=== PATIENT | female | born 1990 | race Two or more races ===

== ENCOUNTER 2024-05-16 10:26 | Inpatient (IN) | payer BC, OTHER ==
[~2024-05-16] VITALS: Ht 167.6 cm; Wt 87.0 kg
--- NOTE | 2024-05-16 11:11 | ED.PDOC ---
GI ASSESSMENT HPI Comments HPI: Poor Historian. 34-year-old female presents to emergency department for periumbilical abdominal pain that started yesterday after dinner on 5:00 p.m.. Patient has associated nausea and vomiting nonbilious nonbloody but denies any diarrhea. Pain is constant nonradiating. No alleviating or precipitating factors. Patient states she always has GI symptoms because she is on Ozempic for her diabetes. Initial Vital Signs: Temp : BP: HR: RR: SpO2: Past Medical History: DM Past Surgical History: Caesarian x2 Social History: Denies smoking, ETOH, or drug use. Medications: Ozempic Allergies: NKDA REVIEW OF SYSTEMS: CONSTITUTIONAL: Denies acute: fever, diaphoresis, chills, generalized weakness. HEAD: Denies acute: headache, photophobia Eyes: Denies acute: Double vision, vision loss, eye pain, eye discharge. EARS: Denies acute: tinnitus, hearing loss, ear discharge, ear pain, THROAT: Denies acute: sore throat, swelling, difficulty swallowing , pain with swallowing, change in voice. NECK: Denies acute: neck pain, neck swelling, stiff neck. HEART: Denies acute : chest pain, palpitations, LUNGS: Denies acute: SOB, wheezing, cough, hemoptysis ABDOMEN: Denies acute: diarrhea, melena , hematemesis, hematochezia SKIN: Denies acute: rash, redness, lesions, itchiness. EXTREMITIES: Denies acute: calf pain, numbness, tingling, weakness, denies pain in extremity. Denies acute: Low back pain. Neuro: Denies acute: focal neurological deficit, motor or sensory focal neurological deficit, tremors, seizure like activity, confusion, dizziness, change in mental status, loss of bowel or bladder function, cauda equina like symptoms. : Denies acute: dysuria, hematuria, flank pain, increase in urinary frequency. PSYCH: Denies acute: hallucination, suicidal ideation, homicidal ideation. FEMALE: Denies acute: abnormal vaginal bleeding, foul odor, unusual discharge. PHYSICAL EXAM: General: no acute distress, awake and alert. Head: normocephalic, atraumatic. Neck: supple, trachea is midline, no swelling. Throat: Normal phonation. Eyes:, no erythema, no purulent discharge, no proptosis, no icterus. Heart: regular rate, regular rhythm, no significant murmur appreciated. Lungs: no apparent respiratory distress, Able to speak in full sentences. No wheezing, no rhonchi, no crackles. No stridors Clear to auscultation bilaterally. Abdomen: Periumbilical tender to palpation, non distended, soft, no guarding, no rebound, + bowel sounds. Neuro: Awake, Alert, oriented to name, self, situation, follows commands GCS=15. Speech is normal. Skin: no petechia, no purpura, no cyanosis, non-pale, not jaundice. Lower extremities: --no - Pitting edema no deformity, no focal swelling, no calf TTP. Makes eye contact. moves all four extremities. Face: no apparent facial droop. Ambulating in the ED independently. Chief Complaint: Abdominal Pain Time Seen by MD: 11:00 Reviewed Notes: Nurses Notes, Medications, Allergies Allergies: Coded Allergies: NO KNOWN ALLERGIES (Unverified , 05/16/24) Information Source: Patient Mode of Arrival: Ambulatory Timing: Hours Duration: Since onset Quality: Aching Severity: Mild Pain Location: Epigastric Modifying Factors: Nothing Associated sign and symptoms: Nausea, Vomiting, Diarrhea Was a procedure done? Was a procedure done?: No GI differential Dx Differential Diagnosis: Electrolyte Imbalance, Food Poisoning, Bacterial, Viral X-Ray, Labs, Meds, VS Vital Signs Date Time Temp Pulse Resp B/P (MAP) Pulse Ox O2 Delivery O2 Flow Rate FiO2 05/16/24 13:52 126/80 05/16/24 11:50 98.0 89 18 122/80 (94) 100 98.0 05/16/24 11:50 89 18 100 Room Air 05/16/24 10:39 98.6 85 20 133/88 (103) 99 Lab Test 05/16/24 13:25 05/16/24 11:10 05/16/24 10:38 Range/Units Lactic Acid Level Pending 2.2 *H 0.4-2.0 mmol/L White Blood Count 19.8 H 4.4-10.8 10^3/uL Red Blood Count 4.76 4.0-5.20 10^6/uL Hemoglobin 15.1 12.2-16.2 g/dL Hematocrit 43.7 36.0-46.0 % Mean Corpuscular Volume 91.6 80.0-100.0 fL Mean Corpuscular Hemoglobin 31.6 28.0-32.0 pg Mean Corpuscular Hemoglobin Concent 34.5 32.0-36.0 g/dL Red Cell Distribution Width 13.1 11.8-14.3 % Platelet Count 292 140-450 10^3/uL Mean Platelet Volume 8.2 6.9-10.8 fL Neutrophils (%) (Auto) 91.5 H 37.0-80.0 % Lymphocytes (%) (Auto) 3.2 L 10.0-50.0 % Monocytes (%) (Auto) 4.5 0.0-12.0 % Eosinophils (%) (Auto) 0.3 0.0-7.0 % Basophils (%) (Auto) 0.5 0.0-2.0 % Neutrophils # (Auto) 18.1 H 1.6-8.6 10 ^3/uL Lymphocytes # (Auto) 0.6 0.4-5.4 10 ^3/uL Monocytes # (Auto) 0.9 0-1.3 10 ^3/uL Eosinophils # (Auto) 0.1 0-0.8 10 ^3/uL Basophils # (Auto) 0.1 0-0.2 10 ^3/uL Nucleated Red Blood Cells 0.0 % Sodium Level 134 L 136-145 mmol/L Potassium Level 4.1 3.5-5.1 mmol/L Chloride Level 102 98-107 mmol/L Carbon Dioxide Level 23 20-31 mmol/L Anion Gap 9 5-15 Blood Urea Nitrogen 8 L 9-23 mg/dL Creatinine 0.79 0.550-1.02 mg/dL Glomerular Filtration Rate Calc 102 >90 mL/min BUN/Creatinine Ratio 10.1 10.0-20.0 Serum Glucose 221 H 74-106 mg/dL Calcium Level 10.3 8.7-10.4 mg/dL Total Bilirubin 1.0 0.2-1.0 mg/dL Aspartate Amino Transferase (AST) 22 13-40 U/L Alanine Aminotransferase (ALT) 63 H 7-40 U/L Alkaline Phosphatase 70 46-116 U/L Total Protein 8.0 5.7-8.2 g/dL Albumin 4.7 3.2-4.8 g/dL Lipase 47 12-53 U/L Beta HCG, Quantitative 0.5 L 1.5-4.2 mIU/mL Urine Color Yellow Yellow Urine Clarity Clear Clear Urine pH 5.5 5.0-9.0 Urine Specific [place] 1.034 1.001-1.035 Urine Protein Trace H Negative Urine Ketones 2+ H Negative Urine Blood Negative Negative /uL Urine Nitrite 2+ H Negative Urine Bilirubin Negative Negative Urine Urobilinogen Normal Negative mg/dL Urine Leukocyte Esterase Negative Negative /uL Urine RBC 4 0 - 4 /hpf Urine WBC 7 0 - 5 /hpf Urine Squamous Epithelial Cells Few <5 /hpf Urine Bacteria Few H None Seen /hpf Urine Mucus Few None Seen Urine Glucose 4+ H Normal mg/dL Urine Opiates Screen Neg NEGATIVE Urine Fentanyl Screen Neg NEGATIVE Urine Barbiturates Screen Neg NEGATIVE Urine Phencyclidine Screen Neg NEGATIVE Urine Amphetamines Screen Neg NEGATIVE Urine Benzodiazepines Screen Neg NEGATIVE Urine Cocaine Screen Neg NEGATIVE Urine Cannabinoids Screen Neg NEGATIVE Current Medications Medications (Trade) Dose Ordered Sig/Hector Route Start Time Stop Time Status Last Admin Ondansetron HCl (Zofran) 8 mg ONCE ONCE IV 05/16/24 11:00 05/16/24 11:01 DC 05/16/24 12:03 Piperacillin Sod/ Tazobactam Sod 100 ml @ 100 mls/hr ONCE ONCE IV 05/16/24 12:15 05/16/24 13:14 DC 05/16/24 12:45 Sodium Chloride 1,000 ml @ 1,000 mls/hr Q1H ONCE IV 05/16/24 12:15 05/16/24 13:14 DC 05/16/24 12:15 Fentanyl Citrate 100 mcg ONCE ONCE IV 05/16/24 12:15 05/16/24 12:55 DC 05/16/24 13:52 [place] [id number] Ph: [phone] DIAGNOSTIC IMAGING Diagnostic Imaging Report : [id number] Signed PATIENT: ALAINA MAYORGA ACCT: [id number] UNIT: [id number] : 1990 LOC: ER ROOM / BED: / AGE / SEX: 34 / F ADM STATUS: REG ER SERVICE 1046 ORDERING PHYSICIAN: DAVIN ENCARNACION DO PROCEDURE(s): ABPL - CT AB PEL WO CON-NO ORAL OR IV REASON: abd pain n/v ORDER NUMBER(s): [id number], ACCESSION NUMBER(s): [id number] Exam: CT CT AB PEL WO CON-NO ORAL OR IV History: abd pain n/v Comparison Study: None Technique: Multidetector spiral CT of the abdomen and pelvis was performed from lung bases to pubic symphysis. Imaging was performed without IV contrast. Axial, coronal and sagittal multiplanar reformats were obtained from the axial data set by the technologist. Radiation dose : Abdomen/Pelvis: CTDIvol 12 mGy, DLP 623 mGy*cm. Findings: Evaluation of solid organs is limited due to lack of intravenous contrast use. Lung Bases: No acute or significant lung base finding. Normal heart size. No pleural or pericardial effusion. Liver: Diffuse hepatic steatosis. Gallbladder and biliary Tree: Unremarkable Spleen: Unremarkable Pancreas: The pancreas is grossly normal in appearance. Adrenal Glands: Unremarkable Kidneys: Kidneys are grossly normal without calculi or hydronephrosis. Bladder: Grossly unremarkable for degree of distention. Bowel: The stomach is grossly normal in appearance. Small bowel and colon are normal in caliber and distribution. Appendix is dilated with an appendicolith and adjacent stranding. No free air or loculated abscess. Ascites: Absent Lymphadenopathy: No mesenteric, retroperitoneal or periportal lymphadenopathy. Abdominal wall and Mesentery: Unremarkable. Vasculature: The visualized abdominal aorta is normal in size and caliber. Evaluation of abdominal and pelvic vessels is limited due to lack of intravenous contrast. Pelvic Organs: Intrauterine device in place. Musculoskeletal: No aggressive focal bony lesions, acute fractures or dislocation. IMPRESSION: 1. Acute appendicitis. No evidence of rupture. Surgical evaluation is recommended. Radiation optimization: All CT scans at this facility use at least one of these dose optimization techniques: Automated exposure control mA and/or kV adjustment per patient size (includes targeted exams where dose is matched to clinical indication) or iterative reconstruction. HS:Y ATED BY: JOSE SEGOVIA MD DICTATED DATE/TIME: 05/16/24 1308 SIGNED BY: JOSE SEGOVIA MD SIGNED DATE/TIME: 05/16/241307 CC: Reevaluation 1ST: Unchanged Patient Education/Counseling: Diagnosis, Treatment Family Education/Counseling: No Family Present Departure 1 Departure Time of Disposition: 12:12 Impression: Primary Impression: Abdominal pain Additional Impressions: Nausea and vomiting UTI (urinary tract infection) Leukocytosis Acute appendicitis Disposition: ADMITTED INPATIENT Admit to: Tele Condition: Guarded Discharged With: Self Critical Care Note Critical Care Time?: No Stability Stability form required: No I personally scribed for DAVIN ENCARNACION DO ([email or web address]) on 05/16/24 at 11:11. Electronically submitted by Yasmine Maravilla ([email or web address]). I personally scribed for DAVIN ENCARNACION DO ([email or web address]) on 05/16/24 at 13:57. Electronically submitted by Yasmine Maravilla ([email or web address]). DAVIN ENCARNACION DO May 16, 2024 11:11
[2024-05-16 11:33] LABS: Urine Bacteria FEW /hpf (None Seen); Urine Blood Negative /uL (Negative); Urine Clarity Clear (Clear); Urine Color Yellow (Yellow); Urine Mucus FEW (None Seen); Urine Protein, UAD TRACE (Negative); Urine Specific Gravity 1.034 (1.001-1.035); Urine Squamous Epithelial Cell FEW /hpf (<5); Urine Urobilinogen Normal (Negative); Urine WBC 7 /hpf (0 - 5); Urine pH 5.5 (5.0-9.0)
[2024-05-16 11:46] LABS: Basophils # (auto) 0.1 10 ^3/uL (0-0.2); Basophils % (auto) 0.5 % (0.0-2.0); Eosinophils # (auto) 0.1 10 ^3/uL (0-0.8); Eosinophils % (auto) 0.3 % (0.0-7.0); Hematocrit 43.7 % (36.0-46.0); Hemoglobin 15.1 g/dL (12.2-16.2); Lymphocytes # (auto) 0.6 10 ^3/uL (0.4-5.4); Lymphocytes % (auto) 3.2 % (10.0-50.0); Mean Corpuscular Hemoglobin 31.6 pg (28.0-32.0); Mean Corpuscular Hgb Conc. 34.5 g/dL (32.0-36.0); Mean Corpuscular Volume 91.6 fL (80.0-100.0); Monocytes # (auto) 0.9 10 ^3/uL (0-1.3); Monocytes % (auto) 4.5 % (0.0-12.0); Neutrophils # (auto) 18.1 10 ^3/uL (1.6-8.6); Neutrophils % (auto) 91.5 % (37.0-80.0); Platelet Count (auto) 292 10^3/uL (140-450); Red Blood Cells 4.76 10^6/uL (4.0-5.20); Red Cell Distribution Width 13.1 % (11.8-14.3); White Blood Cell 19.8 10^3/uL (4.4-10.8)
[2024-05-16 11:54] LABS: Albumin 4.7 g/dL (3.2-4.8); Alkaline Phosphatase 70 U/L (46-116); Anion Gap 9 (5-15); Aspartate Aminotransferase 22 U/L (13-40); BUN/Creatinine Ratio 10.1 (10.0-20.0); Calcium 10.3 mg/dL (8.7-10.4); Carbon Dioxide 23 mmol/L (20-31); Chloride 102 mmol/L (98-107); Lipase 47 U/L (12-53); Potassium 4.1 mmol/L (3.5-5.1)
[2024-05-16 11:58] LABS: Amphetamine Screen, Urine Neg (NEGATIVE); Barbiturate Scree,Urine Neg (NEGATIVE); Benzodiazephine Screen, Urine Neg (NEGATIVE); Cannabinoid Screen, Urine Neg (NEGATIVE); Cocaine Screen, Urine Neg (NEGATIVE); Opiate Scree,Urine Neg (NEGATIVE); Phencyclidine Screen, Urine Neg (NEGATIVE)
[2024-05-16 11:59] LABS: Lactic Acid w/Reflex 2.2 mmol/L (0.4-2.0)
[2024-05-16 12:02] LABS: Alanine Aminotransferase 63 U/L (7-40); Blood Urea Nitrogen 8 mg/dL (9-23); Glucose 221 mg/dL (74-106); Sodium 134 mmol/L (136-145)
[2024-05-16] MEDS: ONDANSETRON HCL 4 MG/2 ML VIAL IV ONE (12:03)
[2024-05-16] MEDS: SODIUM CHLORIDE 0.9% 1,000 ML IV ONE (12:15)
[2024-05-16] MEDS: PIPERACILLIN-TAZOB 3.375GM 100 ML IV ONE (12:45)
--- NOTE | 2024-05-16 13:10 | DVH ---
Exam: CT CT AB PEL WO CON-NO ORAL OR IV History: abd pain n/v Comparison Study: None Technique: Multidetector spiral CT of the abdomen and pelvis was performed from lung bases to pubic symphysis. Imaging was performed without IV contrast. Axial, coronal and sagittal multiplanar reform ats were obtained from the axial data set by the technologist. Radiation dose : Abdomen/Pelvis: CTDIvol 12 mGy, DLP 623 mGy*cm. Findings: Evaluation of solid organs is limited due to lack of intravenous contrast use. Lung Bases: No acute or significant lung base finding. Normal heart size. No pleural or pericardial effusion. Liver: Diffuse hepatic steatosis. Gallbladder and biliary Tree: Unremarkable Spleen: Unremarkable Pancreas: The pancreas is grossly normal in appearance. Adrenal Glands: Unremarkable Kidneys: Kidneys are grossly normal without calculi or hydronephrosis. Bladder: Grossly unremarkable for degree of distention. Bowel: The stomach is grossly normal in appearance. Small bowel and colon are normal in caliber and d istribution. Appendix is dilated with an appendicolith and adjacent stranding. No free air or locula fabi abscess. Ascites: Absent Lymphadenopathy: No mesenteric, retroperitoneal or periportal lymphadenopathy. Abdominal wall and Mesentery: Unremarkable. Vasculature: The visualized abdominal aorta is normal in size and caliber. Evaluation of abdominal a nd pelvic vessels is limited due to lack of intravenous contrast. Pelvic Organs: Intrauterine device in place. Musculoskeletal: No aggressive focal bony lesions, acute fractures or dislocation. IMPRESSION: 1. Acute appendicitis. No evidence of rupture. Surgical evaluation is recommended. Radiation optimization: All CT scans at this facility use at least one of these dose optimization amanda hniques: Automated exposure control mA and/or kV adjustment per patient size (includes targeted exams where dose is matched to clinical indication) or iterative reconstruction. HS:Y
[2024-05-16] MEDS: fentaNYL CITRATE 100 MCG/2 ML VL IV ONE (13:52)
--- NOTE | 2024-05-16 14:23 | DVHINCON2 ---
Date of service: May 16, 2024 Allergies: Coded Allergies: NO KNOWN ALLERGIES (Unverified , 05/16/24) Vital Signs Vital Signs Date Time Temp Pulse Resp B/P (MAP) Pulse Ox O2 Delivery O2 Flow Rate FiO2 05/16/24 13:52 126/80 05/16/24 11:50 98.0 89 18 100 98.0 05/16/24 11:50 Room Air Labs/Diagnostic Data Labs Test 05/16/24 13:25 05/16/24 11:10 05/16/24 10:38 Range/Units White Blood Count 19.8 H 4.4-10.8 10^3/uL Red Blood Count 4.76 4.0-5.20 10^6/uL Hemoglobin 15.1 12.2-16.2 g/dL Hematocrit 43.7 36.0-46.0 % Mean Corpuscular Volume 91.6 80.0-100.0 fL Mean Corpuscular Hemoglobin 31.6 28.0-32.0 pg Mean Corpuscular Hemoglobin Concent 34.5 32.0-36.0 g/dL Red Cell Distribution Width 13.1 11.8-14.3 % Platelet Count 292 140-450 10^3/uL Mean Platelet Volume 8.2 6.9-10.8 fL Neutrophils (%) (Auto) 91.5 H 37.0-80.0 % Lymphocytes (%) (Auto) 3.2 L 10.0-50.0 % Monocytes (%) (Auto) 4.5 0.0-12.0 % Eosinophils (%) (Auto) 0.3 0.0-7.0 % Basophils (%) (Auto) 0.5 0.0-2.0 % Neutrophils # (Auto) 18.1 H 1.6-8.6 10 ^3/uL Lymphocytes # (Auto) 0.6 0.4-5.4 10 ^3/uL Monocytes # (Auto) 0.9 0-1.3 10 ^3/uL Eosinophils # (Auto) 0.1 0-0.8 10 ^3/uL Basophils # (Auto) 0.1 0-0.2 10 ^3/uL Nucleated Red Blood Cells 0.0 % Sodium Level 134 L 136-145 mmol/L Potassium Level 4.1 3.5-5.1 mmol/L Chloride Level 102 98-107 mmol/L Carbon Dioxide Level 23 20-31 mmol/L Anion Gap 9 5-15 Blood Urea Nitrogen 8 L 9-23 mg/dL Creatinine 0.79 0.550-1.02 mg/dL Glomerular Filtration Rate Calc 102 >90 mL/min BUN/Creatinine Ratio 10.1 10.0-20.0 Serum Glucose 221 H 74-106 mg/dL Calcium Level 10.3 8.7-10.4 mg/dL Total Bilirubin 1.0 0.2-1.0 mg/dL Aspartate Amino Transferase (AST) 22 13-40 U/L Alanine Aminotransferase (ALT) 63 H 7-40 U/L Alkaline Phosphatase 70 46-116 U/L Total Protein 8.0 5.7-8.2 g/dL Albumin 4.7 3.2-4.8 g/dL Lipase 47 12-53 U/L Beta HCG, Quantitative 0.5 L 1.5-4.2 mIU/mL Urine Color Yellow Yellow Urine Clarity Clear Clear Urine pH 5.5 5.0-9.0 Urine Specific [place] 1.034 1.001-1.035 Urine Protein Trace H Negative Urine Ketones 2+ H Negative Urine Blood Negative Negative /uL Urine Nitrite 2+ H Negative Urine Bilirubin Negative Negative Urine Urobilinogen Normal Negative mg/dL Urine Leukocyte Esterase Negative Negative /uL Urine RBC 4 0 - 4 /hpf Urine WBC 7 0 - 5 /hpf Urine Squamous Epithelial Cells Few <5 /hpf Urine Bacteria Few H None Seen /hpf Urine Mucus Few None Seen Urine Glucose 4+ H Normal mg/dL Urine Opiates Screen Neg NEGATIVE Urine Fentanyl Screen Neg NEGATIVE Urine Barbiturates Screen Neg NEGATIVE Urine Phencyclidine Screen Neg NEGATIVE Urine Amphetamines Screen Neg NEGATIVE Urine Benzodiazepines Screen Neg NEGATIVE Urine Cocaine Screen Neg NEGATIVE Urine Cannabinoids Screen Neg NEGATIVE Assessment [id number] AC APPENDICITIS URGENT LAP/OPEN APPENDECTOMY Plan discussed with: Patient ESTEBAN ROSS MD May 16, 2024 14:23
[2024-05-16] MEDS ORDERED: BUPIVACAINE HCL 50 ML ONE (14:52)
[2024-05-16] MEDS ORDERED: MIDAZOLAM HCL 2MG/2ML 2ml VIAL (1mg/ml) ONE (15:32)
[2024-05-16] MEDS ORDERED: NITROGLYCERIN 0.4 MG SL TAB SL PRN (15:45)
[2024-05-16] MEDS ORDERED: ONDANSETRON HCL 4 MG/2 ML VIAL IV PRN (15:45)
[2024-05-16] MEDS ORDERED: MORPHINE SULFATE INJ 2 MG/ml SYRG IV PRN (15:45)
[2024-05-16] MEDS ORDERED: MORPHINE SULF PF 5 MG/10 ML VIAL ONE (15:54)
[2024-05-16] MEDS ORDERED: METOCLOPRAMIDE HCL 5MG/ml INJ 2ml VIAL ONE (15:56)
[2024-05-16] MEDS ORDERED: ONDANSETRON HCL 4 MG/2 ML VIAL ONE (15:56)
--- NOTE | 2024-05-16 16:09 | DVHHPRES ---
History of Present Illness Resident Creating Document: RENEE SMITH RESIDENT Reason for Visit: Yelena-umbilical abdominal pain, nausea, vomiting History of Present Illness 34-year-old female with type 2 diabetes mellitus presented with severe yelena- umbilical abdominal pain that began yesterday afternoon. The pain radiated to the right lower quadrant and was rated as 10 /10 in intensity. It was associated with nausea and vomiting, with no factors that elevated or aggravated the pain. She denied experiencing any chest pain, shortness of breath, or diarrhea. The pain was constant and non-relieving. Endocrine: Diabetes Past Surgical History section X2 Family History Noncontributory Past Social History She denies smoking, alcohol, or other drug abuse. Review of Systems Review of Systems CONSTITUTIONAL: Denies weight loss, fever and chills. HEENT: Denies changes in vision and hearing. RESPIRATORY: Denies SOB and cough. CV: Denies palpitations and chest pain. GI: Admits to yelena-umbilical abdominal pain, admits to nausea, admits to vomiting : Denies dysuria and urinary frequency. MSK: Denies myalgia and joint pain. SKIN: Denies rash and pruritus. NEUROLOGICAL: Denies headache Allergies: Coded Allergies: NO KNOWN ALLERGIES (Unverified , 05/16/24) Medications Current Medications Medications Dose Ordered Sig/Hector Route Start Time Stop Time Status Last Admin Dose Admin Ondansetron HCl 4 mg Q4HP PRN IV 05/16/24 15:45 UNV Acetaminophen 650 mg Q6HP PRN PO 05/16/24 15:45 UNV Nitroglycerin 0.4 mg Q5MINP PRN SL 05/16/24 15:45 UNV Morphine Sulfate 2 mg Q30M PRN IV 05/16/24 15:45 UNV Ceftriaxone Sodium 50 ml @ 100 mls/hr DAILY IV 05/17/24 10:00 UNV Exam Vital Signs Vital Signs Date Time Temp Pulse Resp B/P (MAP) Pulse Ox O2 Delivery O2 Flow Rate FiO2 05/16/24 13:52 126/80 05/16/24 11:50 98.0 89 18 100 98.0 05/16/24 11:50 Room Air Exam GENERAL: Patient was in acute distress Due to abdominal pain HEENT: EOMI, Moist mucous membranes. No scleral icterus. No cervical lymphadenopathy. LUNGS: Clear to auscultation bilaterally. No accessory muscle use. CARDIOVASCULAR: Regular rate and rhythm. No murmur. No JVD. ABDOMEN: Right Lower quadrant tenderness positive. EXTREMITIES: No edema. Nontender. SKIN: No rashes or lesions. Warm. NEUROLOGIC: Alert and oriented X3 Labs/Xrays Labs Test 05/16/24 13:25 05/16/24 11:10 05/16/24 10:38 Range/Units Lactic Acid Level 2.1 *H 0.4-2.0 mmol/L White Blood Count 19.8 H 4.4-10.8 10^3/uL Red Blood Count 4.76 4.0-5.20 10^6/uL Hemoglobin 15.1 12.2-16.2 g/dL Hematocrit 43.7 36.0-46.0 % Mean Corpuscular Volume 91.6 80.0-100.0 fL Mean Corpuscular Hemoglobin 31.6 28.0-32.0 pg Mean Corpuscular Hemoglobin Concent 34.5 32.0-36.0 g/dL Red Cell Distribution Width 13.1 11.8-14.3 % Platelet Count 292 140-450 10^3/uL Mean Platelet Volume 8.2 6.9-10.8 fL Neutrophils (%) (Auto) 91.5 H 37.0-80.0 % Lymphocytes (%) (Auto) 3.2 L 10.0-50.0 % Monocytes (%) (Auto) 4.5 0.0-12.0 % Eosinophils (%) (Auto) 0.3 0.0-7.0 % Basophils (%) (Auto) 0.5 0.0-2.0 % Neutrophils # (Auto) 18.1 H 1.6-8.6 10 ^3/uL Lymphocytes # (Auto) 0.6 0.4-5.4 10 ^3/uL Monocytes # (Auto) 0.9 0-1.3 10 ^3/uL Eosinophils # (Auto) 0.1 0-0.8 10 ^3/uL Basophils # (Auto) 0.1 0-0.2 10 ^3/uL Nucleated Red Blood Cells 0.0 % Sodium Level 134 L 136-145 mmol/L Potassium Level 4.1 3.5-5.1 mmol/L Chloride Level 102 98-107 mmol/L Carbon Dioxide Level 23 20-31 mmol/L Anion Gap 9 5-15 Blood Urea Nitrogen 8 L 9-23 mg/dL Creatinine 0.79 0.550-1.02 mg/dL Glomerular Filtration Rate Calc 102 >90 mL/min BUN/Creatinine Ratio 10.1 10.0-20.0 Serum Glucose 221 H 74-106 mg/dL Calcium Level 10.3 8.7-10.4 mg/dL Total Bilirubin 1.0 0.2-1.0 mg/dL Aspartate Amino Transferase (AST) 22 13-40 U/L Alanine Aminotransferase (ALT) 63 H 7-40 U/L Alkaline Phosphatase 70 46-116 U/L Total Protein 8.0 5.7-8.2 g/dL Albumin 4.7 3.2-4.8 g/dL Lipase 47 12-53 U/L Beta HCG, Quantitative 0.5 L 1.5-4.2 mIU/mL Urine Color Yellow Yellow Urine Clarity Clear Clear Urine pH 5.5 5.0-9.0 Urine Specific [place] 1.034 1.001-1.035 Urine Protein Trace H Negative Urine Ketones 2+ H Negative Urine Blood Negative Negative /uL Urine Nitrite 2+ H Negative Urine Bilirubin Negative Negative Urine Urobilinogen Normal Negative mg/dL Urine Leukocyte Esterase Negative Negative /uL Urine RBC 4 0 - 4 /hpf Urine WBC 7 0 - 5 /hpf Urine Squamous Epithelial Cells Few <5 /hpf Urine Bacteria Few H None Seen /hpf Urine Mucus Few None Seen Urine Glucose 4+ H Normal mg/dL Urine Opiates Screen Neg NEGATIVE Urine Fentanyl Screen Neg NEGATIVE Urine Barbiturates Screen Neg NEGATIVE Urine Phencyclidine Screen Neg NEGATIVE Urine Amphetamines Screen Neg NEGATIVE Urine Benzodiazepines Screen Neg NEGATIVE Urine Cocaine Screen Neg NEGATIVE Urine Cannabinoids Screen Neg NEGATIVE Assessment/Plan Assessment/Plan # Acute appendicitis #Intra-abdominal abscess, # Leukocytosis due to appendicitis and intra-abdominal abscess # Lactic acidosis due to acute appendicitis and intra-abdominal abscess # SIRS -Status post laparoscopic appendectomy with intra-abdominal abscess drainage. - presentation appreciated, recommended emergent surgery. - continue empiric antibiotics - pending blood culture - pain management - maintain hydration # Acute UTI: - uterus nine positive, urine bacteria positive - urine culture pending - Continue antibiotic therapy. - Change antibiotic therapy for UTI based on urine culture results. # Diabetes mellitus type 2 - HgA1C: 7.7 - continue sliding scale insulin - monitor blood glucose level. # Mild hyponatremia - sodium level was 134 - monitor BMP reasons. Goal of care discussed with patient for 27 minutes: Full code Case discussed with Dr. Sidhu Plan discussed with: Patient My Orders Orders - RENEE SMITH RESIDENT Procedure Category Date Status Time Admit ADMIT 05/16/24 Transmitted 15:40 Allergies LALITO 05/16/24 In Process 15:40 Code Status CODE 05/16/24 Transmitted 15:40 Ondansetron Hcl PHA 05/16/24 Logged (Zofran) 15:45 Complete Blood Count LAB 05/17/24 Verified 04:00 Comprehensive LAB 05/17/24 Verified Metabolic Panel 04:00 Npo (Nothing By DIET 05/16/24 Transmitted Mouth) Diet Dinner Acetaminophen Tablet PHA 05/16/24 Logged (Tylenol Tablet) 15:45 Nitroglycerin PHA 05/16/24 Logged Sublingual (Ntrostat 15:45 Morphine Sulfate PHA 05/16/24 Logged Injection 15:45 Oxygen By Nasal RT 05/16/24 Transmitted Cannula 15:40 Stat Ekg For Chest LALITO 05/16/24 In Process Pain 15:40 Notify Md Of Changes LALITO 05/16/24 In Process From Base 15:40 Ceftriaxone 1gm/50ml PHA 05/17/24 Logged D5w (Rocephin) 10:00 Date of Service: May 17, 2024 Billing Provider: FLAQUITO SIDHU MD Common Visit Codes: [id number] INP/OBS CARE (HIGH) RENEE SMITH RESIDENT May 16, 2024 16:09 FLAQUITO SIDHU MD May 20, 2024 20:58
[2024-05-16] MEDS: BUPIVACAINE 0.5% INJ 50ML VIAL IJ ONE (16:15)
[2024-05-16] MEDS ORDERED: KETOROLAC TROMETH 30 MG/ML 1ML VIAL ONE (16:22)
[2024-05-16] MEDS ORDERED: SUGAMMADEX 200mg/2ml Vial (100MG/ML) IV ONE (16:25)
[2024-05-16 16:33] VITALS: PULSE 91; RESP 12; O2SAT 100
--- NOTE | 2024-05-16 16:33 | DVHOP2 ---
Operative Report [id number] AC APPENDICITIS WIT INTRA ABD ABSCESS DRAINAGE OF INTRAABD ABSCESS AND LAP APPENDECTOMY EBL 5 CC NO DRAINS NO COMPLICATIONS ESTEBAN ROSS MD May 16, 2024 16:33
--- NOTE | 2024-05-16 16:48 | DVHOP ---
DATE OF SURGERY: 05/16/2024 PREOPERATIVE DIAGNOSES: Acute appendicitis with intra-abdominal abscess. POSTOPERATIVE DIAGNOSES: Acute appendicitis with intra-abdominal abscess. PROCEDURE: Drainage of intra-abdominal abscess with laparoscopic appendectomy. SURGEON: Maco Hilliard MD HAND SANDER: None. ANESTHESIA: General. ESTIMATED BLOOD LOSS: Close to 5 mL DRAINS: No drains were used. COMPLICATIONS: No complications were encountered. DESCRIPTION OF PROCEDURE: The patient was prepped and draped in the usual sterile fashion in the supine position and a supraumbilical incision was applied, was taken down to the fascia. The Veress needle was introduced and CO2 insufflation was started, pressure of 15 mmHg. The needle was withdrawn, replaced by the 12 mm trocar and a telescope was introduced and the appendix was found acutely inflamed, distended with intra-abdominal abscess in the right lower quadrant and pelvis and two 5 mm ports were applied more inferiorly, one above the symphysis, the third midway between the upper two. The patient was placed in the Trendelenburg and right upper lateral position. The camera was moved to the lowermost 5 mm port, able to proceed with surgery. The abscess was drained out. The mesoappendix was clipped at the base, divided distal to that using Harmonic device. The base of the appendix was then cleared for transection using the Endo-JESSICA stapling device. Appendix released in this fashion, was retrieved from the supraumbilical wound in the EndoCatch bag without any complication. Hemostasis was secured. Irrigation fluid was removed. The ports sites were free from bleeding. EndoClose suture was used for the fascial closure of the supraumbilical wound. All ports were withdrawn after all the CO2 been let out and the patient was placed in supine. The wounds were then brought together using 3-0 Monocryl suture in a subcuticular fashion. Surgical glue was applied. The patient tolerated the procedure well and was taken back to the recovery room in stable condition. MD HARPAL Sarabia/CHRISSY TID: [id number] RECEIPT: [id number] cc: Wanda Ferguson
[2024-05-16] MEDS ORDERED: DEXTROSE (50%) 50ML SYRG IV PRN (18:15)
[2024-05-16] MEDS ORDERED: SEMA2INJ3 SC (18:28)
[2024-05-16 18:32] VITALS: BP 115/76; PULSE 83; RESP 16; TEMP 98.3; O2SAT 99
[2024-05-16 18:47] VITALS: BP 115/76; PULSE 83; RESP 16; RESP 17; TEMP 98.3; O2SAT 99
--- NOTE | 2024-05-16 18:59 | DVHINCON2 ---
DATE OF CONSULTATION: 05/16/2024 HISTORY OF PRESENT ILLNESS: A 34 years old, coming in with right lower abdominal pain for the past 2 or 3 days, got worse, came to the Emergency Room. Some nausea, no vomiting, no constipation, diarrhea. No hematemesis, melena. No bleeding per rectum. PAST MEDICAL HISTORY: She has diabetes, but no hypertension. PAST SURGICAL HISTORY: . PHYSICAL EXAMINATION: VITAL SIGNS: Afebrile, stable signs. HEENT: With no evidence of pallor, cyanosis, or jaundice. NECK: Supple, nontender with no thyromegaly, lymphadenopathy. CHEST AND LUNGS: Clear. HEART: Within normal limits. ABDOMEN: Soft, tender in the right lower abdomen with evidence of rebound. EXTREMITIES: Unremarkable. NEUROLOGIC: Intact. CLINICAL IMPRESSION: Acute appendicitis. PLAN: Laparoscopic, possible open appendectomy. Benefits, risks discussed and a consent obtained. MD HARPAL Sarabia/FLAKO/RED TID: [id number] RECEIPT: [id number]
[2024-05-16 21:00] VITALS: BP_SYST 109; BP_SYST 120; BP_DIAS 67; BP_DIAS 69; PULSE 88; PULSE 94; RESP 20; TEMP 97.9; TEMP 98.1; O2SAT 97; O2SAT 98
[2024-05-16] MEDS: metroNIDAZOLE 500MG/100ML 100 ML IV SCH (22:36)
[2024-05-16] MEDS: ACCU-CHEK COMFORT CURVE STRIP VI SCH (22:39)
[2024-05-16] MEDS: InsuLIN REG 1unit/0.01ml Soln (100units/ml) SC SCH (22:52)
[2024-05-16] MEDS: ACETAMINOPHEN 325 MG TAB PO PRN (23:57)
[2024-05-17] VITALS (7 sets, daily range): BP systolic 97–110; BP diastolic 51–75; PULSE 60–83; RESP 14–20; TEMP 36.5; O2SAT 95–100
[2024-05-17 07:54] LABS: Basophils # (auto) 0 10 ^3/uL (0-0.2); Basophils % (auto) 0.2 % (0.0-2.0); Eosinophils # (auto) 0 10 ^3/uL (0-0.8); Eosinophils % (auto) 0.3 % (0.0-7.0); Hematocrit 36.2 % (36.0-46.0); Hemoglobin 12.6 g/dL (12.2-16.2); Lymphocytes # (auto) 1.8 10 ^3/uL (0.4-5.4); Lymphocytes % (auto) 24.7 % (10.0-50.0); Mean Corpuscular Hgb Conc. 34.7 g/dL (32.0-36.0); Mean Corpuscular Volume 92.3 fL (80.0-100.0); Monocytes # (auto) 0.6 10 ^3/uL (0-1.3); Monocytes % (auto) 7.5 % (0.0-12.0); Neutrophils % (auto) 67.3 % (37.0-80.0); Nucleated Red Blood Cells % 0.1 %; Platelet Count (auto) 245 10^3/uL (140-450); Red Blood Cells 3.92 10^6/uL (4.0-5.20); White Blood Cell 7.4 10^3/uL (4.4-10.8)
[2024-05-17 08:10] LABS: Alanine Aminotransferase 35 U/L (7-40); Alkaline Phosphatase 58 U/L (46-116); Anion Gap 6 (5-15); BUN/Creatinine Ratio 10.4 (10.0-20.0); Calcium 8.9 mg/dL (8.7-10.4); Carbon Dioxide 27 mmol/L (20-31); Chloride 105 mmol/L (98-107); Potassium 3.5 mmol/L (3.5-5.1); Sodium 138 mmol/L (136-145)
[2024-05-17 08:11] LABS: Albumin 3.6 g/dL (3.2-4.8); Bilirubin, Total 0.9 mg/dL (0.2-1.0); Total Protein 6.2 g/dL (5.7-8.2)
[2024-05-17] MEDS: cefTRIAXone 1GM/50ML D5W 50 ML IV SCH (08:12)
[2024-05-17 08:17] LABS: Aspartate Aminotransferase 11 U/L (13-40); Blood Urea Nitrogen 8 mg/dL (9-23); Glucose 141 mg/dL (74-106)
--- NOTE | 2024-05-17 08:25 | DVHPNRES ---
Progress Note Date Seen: May 17, 2024 Resident Creating Document: RENEE SMITH RESIDENT Subjective Review of Systems 34-year-old female with type 2 diabetes mellitus presented with severe cely- umbilical abdominal pain that began yesterday afternoon. The pain radiated to the right lower quadrant and was rated as 10 /10 in intensity. It was associated with nausea and vomiting, with no factors that elevated or aggravated the pain. She denied experiencing any chest pain, shortness of breath, or diarrhea. The pain was constant and non-relieving. CONSTITUTIONAL: Denies weight loss, fever and chills. HEENT: Denies changes in vision and hearing. RESPIRATORY: Denies SOB and cough. CV: Denies palpitations and chest pain. GI: Admits to cely-umbilical abdominal pain, admits to nausea, admits to vomiting : Denies dysuria and urinary frequency. MSK: Denies myalgia and joint pain. SKIN: Denies rash and pruritus. NEUROLOGICAL: Denies headache Objective vital signs Vital Sign Date Time Temp Pulse Resp B/P (MAP) Pulse Ox O2 Delivery O2 Flow Rate FiO2 05/17/24 05:00 97.8 83 20 102/51 (68) 95 97.8 05/16/24 20:00 Room Air* 0 21 Total Intake and Output 05/16/24 05/16/24 05/17/24 15:00 23:00 07:00 Intake Total 450 ml Output Total 100 ml Balance 350 ml medications Current Medications Medications Dose Ordered Sig/Hector Route Start Time Stop Time Status Last Admin Dose Admin Ondansetron HCl 4 mg Q4HP PRN IV 05/16/24 15:45 Acetaminophen 650 mg Q6HP PRN PO 05/16/24 15:45 05/17/24 06:51 650 MG Nitroglycerin 0.4 mg Q5MINP PRN SL 05/16/24 15:45 Morphine Sulfate 2 mg Q30M PRN IV 05/16/24 15:45 Ceftriaxone Sodium 50 ml @ 100 mls/hr DAILY IV 05/17/24 10:00 Metronidazole 100 ml @ 100 mls/hr Q8HR IV 05/16/24 22:00 05/17/24 05:42 100 MLS/HR Diagnostic Test (Pha) 1 strip ACHS 05/16/24 22:00 05/17/24 05:41 1 STRIP Insulin Human Regular ACHS SC 05/16/24 22:00 05/16/24 22:52 2 UNITS Dextrose 50 ml UD PRN IV 05/16/24 18:15 Examination GENERAL: Patient was in acute distress Due to abdominal pain HEENT: EOMI, Moist mucous membranes. No scleral icterus. No cervical lymphadenopathy. LUNGS: Clear to auscultation bilaterally. No accessory muscle use. CARDIOVASCULAR: Regular rate and rhythm. No murmur. No JVD. ABDOMEN: Right Lower quadrant tenderness positive. EXTREMITIES: No edema. Nontender. SKIN: No rashes or lesions. Warm. NEUROLOGIC: Alert and oriented X3 laboratory and microbiology Laboratory Tests 05/17/24 06:56 Test 05/17/24 06:56 Range/Units Serum Glucose 141 H 74-106 mg/dL Problem List/Assessment/Plan Problem List/Assessment/Plan # Acute appendicitis #Intra-abdominal abscess, # Leukocytosis due to appendicitis and intra-abdominal abscess # Lactic acidosis due to acute appendicitis and intra-abdominal abscess # SIRS -Status post laparoscopic appendectomy with intra-abdominal abscess drainage. - presentation appreciated, recommended emergent surgery. - continue empiric antibiotics - pending blood culture - pain management - maintain hydration # Acute UTI: - uterus nine positive, urine bacteria positive - urine culture pending - Continue antibiotic therapy. - Change antibiotic therapy for UTI based on urine culture results. # Diabetes mellitus type 2 - HgA1C: 7.7 - continue sliding scale insulin - monitor blood glucose level. # Mild hyponatremia - sodium level was 134 - monitor BMP reasons. Goal of care discussed with patient for 27 minutes: Full code Case discussed with Dr. Arambula Plan discussed with: Patient My Orders My Orders Orders - RENEE SMITH RESIDENT Procedure Category Date Status Time Admit ADMIT 05/16/24 Transmitted 15:40 Allergies LALITO 05/16/24 In Process 15:40 Code Status CODE 05/16/24 Transmitted 15:40 Ondansetron Hcl PHA 05/16/24 In Process (Zofran) 15:45 Acetaminophen Tablet PHA 05/16/24 In Process (Tylenol Tablet) 15:45 Nitroglycerin PHA 05/16/24 In Process Sublingual (Ntrostat 15:45 Morphine Sulfate PHA 05/16/24 In Process Injection 15:45 Oxygen By Nasal RT 05/16/24 Transmitted Cannula 15:40 Stat Ekg For Chest LALITO 05/16/24 In Process Pain 15:40 Notify Md Of Changes LALITO 05/16/24 In Process From Base 15:40 Ceftriaxone 1gm/50ml PHA 05/17/24 In Process D5w (Rocephin) 10:00 Metronidazole PHA 05/16/24 In Process 500mg/100ml (Flagyl 22:00 Glucose Blood PHA 05/16/24 In Process (Accu-Chek Comfort 22:00 Insulin R (Human) PHA 05/16/24 In Process (Insulin R) 22:00 Dextrose 50% Syringe PHA 05/16/24 In Process 18:15 RENEE SMITH RESIDENT May 17, 2024 08:25
[2024-05-17] MEDS ORDERED: MORPHINE SULFATE INJ 2 MG/ml SYRG IV PRN (14:00)
[2024-05-17] MEDS: KETOROLAC TROMETH 30 MG/ML 1ML VIAL IV ONE (14:10)
--- NOTE | 2024-05-17 15:55 | DVHPN2 ---
Progress Note Date Seen: May 17, 2024 Medical Necessity Reason Pt with a Central, PICC or Fol: No Objective vital signs Vital Sign Date Time Temp Pulse Resp B/P (MAP) Pulse Ox O2 Delivery O2 Flow Rate FiO2 05/17/24 13:00 97.7 63 18 106/75 (85) 98 97.7 05/17/24 08:00 Room Air* 0 21 Total Intake and Output 05/16/24 05/16/24 05/17/24 15:00 23:00 07:00 Intake Total 450 ml Output Total 100 ml Balance 350 ml medications Current Medications Medications Dose Ordered Sig/Hector Route Start Time Stop Time Status Last Admin Dose Admin Ondansetron HCl 4 mg Q4HP PRN IV 05/16/24 15:45 Acetaminophen 650 mg Q6HP PRN PO 05/16/24 15:45 05/17/24 06:51 650 MG Nitroglycerin 0.4 mg Q5MINP PRN SL 05/16/24 15:45 Morphine Sulfate 2 mg Q30M PRN IV 05/16/24 15:45 Ceftriaxone Sodium 50 ml @ 100 mls/hr DAILY IV 05/17/24 10:00 05/17/24 08:12 100 MLS/HR Metronidazole 100 ml @ 100 mls/hr Q8HR IV 05/16/24 22:00 05/17/24 14:10 100 MLS/HR Diagnostic Test (Pha) 1 strip ACHS 05/16/24 22:00 05/17/24 11:47 1 STRIP Insulin Human Regular ACHS SC 05/16/24 22:00 05/16/24 22:52 2 UNITS Dextrose 50 ml UD PRN IV 05/16/24 18:15 Ketorolac Tromethamine 30 mg Q12HR IV 05/17/24 22:00 05/22/24 21:59 Morphine Sulfate 2 mg Q6HPRN PRN IV 05/17/24 14:00 laboratory and microbiology Laboratory Tests 05/17/24 06:56 Test 05/17/24 06:56 Range/Units Serum Glucose 141 H 74-106 mg/dL Microbiology Date/Time Source Procedure Growth Status 05/16/24 13:30 Blood Blood Culture - Preliminary NO GROWTH AFTER 24 HOURS OF INCUBATION. Resulted Problem List/Assessment/Plan Problem List/Assessment/Plan AFEBRILE VSS ABD SOFT JONNY DIET WOUNDS HEALING NO COMPLICATIONS ADVANCE DIET CLEARED FOR DISCHARGE INSTRUCTIONS RE DIET ACTIVITY F/UP GIVEN Plan discussed with: Patient My Orders My Orders Orders - ESETBAN ROSS MD Procedure Category Date Status Time Clear Liq Diet DIET 05/16/24 Transmitted Dinner ESTEBAN ROSS MD May 17, 2024 15:55
--- NOTE | 2024-05-17 16:14 | DVHDSRES ---
Discharge Summary Date of Admission Resident Creating Document: RENEE SMIHT RESIDENT May 16, 2024 at 15:40 Date of Discharge: May 17, 2024 Admitting Diagnosis Acute Appendicitis Labs/Diagnostic Data: Laboratory Results Test 05/17/24 06:56 05/16/24 13:25 05/16/24 11:10 05/16/24 10:38 White Blood Count 7.4 10^3/uL (4.4-10.8) Red Blood Count 3.92 10^6/uL (4.0-5.20) Hemoglobin 12.6 g/dL (12.2-16.2) Hematocrit 36.2 % (36.0-46.0) Mean Corpuscular Volume 92.3 fL (80.0-100.0) Mean Corpuscular Hemoglobin 32.0 pg (28.0-32.0) Mean Corpuscular Hemoglobin Concent 34.7 g/dL (32.0-36.0) Red Cell Distribution Width 13.0 % (11.8-14.3) Platelet Count 245 10^3/uL (140-450) Mean Platelet Volume 8.1 fL (6.9-10.8) Neutrophils (%) (Auto) 67.3 % (37.0-80.0) Lymphocytes (%) (Auto) 24.7 % (10.0-50.0) Monocytes (%) (Auto) 7.5 % (0.0-12.0) Eosinophils (%) (Auto) 0.3 % (0.0-7.0) Basophils (%) (Auto) 0.2 % (0.0-2.0) Neutrophils # (Auto) 5.0 10 ^3/uL (1.6-8.6) Lymphocytes # (Auto) 1.8 10 ^3/uL (0.4-5.4) Monocytes # (Auto) 0.6 10 ^3/uL (0-1.3) Eosinophils # (Auto) 0 10 ^3/uL (0-0.8) Basophils # (Auto) 0 10 ^3/uL (0-0.2) Nucleated Red Blood Cells 0.1 % Sodium Level 138 mmol/L (136-145) Potassium Level 3.5 mmol/L (3.5-5.1) Chloride Level 105 mmol/L (98-107) Carbon Dioxide Level 27 mmol/L (20-31) Anion Gap 6 (5-15) Blood Urea Nitrogen 8 mg/dL (9-23) Creatinine 0.77 mg/dL (0.550-1.02) Glomerular Filtration Rate Calc 105 mL/min (>90) BUN/Creatinine Ratio 10.4 (10.0-20.0) Serum Glucose 141 mg/dL (74-106) Calcium Level 8.9 mg/dL (8.7-10.4) Total Bilirubin 0.9 mg/dL (0.2-1.0) Aspartate Amino Transferase (AST) 11 U/L (13-40) Alanine Aminotransferase (ALT) 35 U/L (7-40) Alkaline Phosphatase 58 U/L (46-116) Total Protein 6.2 g/dL (5.7-8.2) Albumin 3.6 g/dL (3.2-4.8) Lactic Acid Level 2.1 mmol/L (0.4-2.0) Hemoglobin A1c 7.7 % A1C (<5.7) Lipase 47 U/L (12-53) Beta HCG, Quantitative 0.5 mIU/mL (1.5-4.2) Urine Color Yellow (Yellow) Urine Clarity Clear (Clear) Urine pH 5.5 (5.0-9.0) Urine Specific [place] 1.034 (1.001-1.035) Urine Protein Trace (Negative) Urine Ketones 2+ (Negative) Urine Blood Negative /uL (Negative) Urine Nitrite 2+ (Negative) Urine Bilirubin Negative (Negative) Urine Urobilinogen Normal mg/dL (Negative) Urine Leukocyte Esterase Negative /uL (Negative) Urine RBC 4 /hpf (0 - 4) Urine WBC 7 /hpf (0 - 5) Urine Squamous Epithelial Cells Few /hpf (<5) Urine Bacteria Few /hpf (None Seen) Urine Mucus Few (None Seen) Urine Glucose 4+ mg/dL (Normal) Urine Opiates Screen Neg (NEGATIVE) Urine Fentanyl Screen Neg (NEGATIVE) Urine Barbiturates Screen Neg (NEGATIVE) Urine Phencyclidine Screen Neg (NEGATIVE) Urine Amphetamines Screen Neg (NEGATIVE) Urine Benzodiazepines Screen Neg (NEGATIVE) Urine Cocaine Screen Neg (NEGATIVE) Urine Cannabinoids Screen Neg (NEGATIVE) Other Laboratory Tests 05/17/24 06:56 Brief Hx & Hospital Course: 34-year-old female with type 2 diabetes mellitus presented with severe cely- umbilical abdominal pain that began yesterday afternoon. The pain radiated to the right lower quadrant and was rated as 10 /10 in intensity. It was associated with nausea and vomiting, with no factors that elevated or aggravated the pain. She denied experiencing any chest pain, shortness of breath, or diarrhea. The pain was constant and non-relieving. Consulted at appreciated, patient was taken to the OR for emergency appendicectomy, post laparoscopic appendectomy with intra-abdominal abscess drainage done yesterday, patient was on clear liquid diet and tolerating diet, patient also got Rocephin and Flagyl as an and empiric antibiotic for surgery and UTI, two the patient denies any overnight fever, nausea vomiting or abdominal pain, surgical consultation was done and surgeon cleared the patient for discharge. Advanced and I to soft mechanical. Site is clean and healing appropriately no signs symptoms of infection. Patient will be go home today if she can tolerate soft diet. Recommended patient to take ibuprofen for surgical pain. Advised patient to follow with up PCP in 1-2 weeks. Condition at Discharge: Fair Final Diagnosis/Problems List # Acute appendicitis #Intra-abdominal abscess, # Status post laparoscopic appendectomy with intra-abdominal abscess drainage. # Leukocytosis due to appendicitis and intra-abdominal abscess # Lactic acidosis due to acute appendicitis and intra-abdominal abscess # SIRS # Acute UTI: # Diabetes mellitus type 2 # Mild hyponatremia Discharge Disposition: Home SNF Discharge Will this Physician continue t: No Discharge Instruct/Medications Diet: Regular Activity: No Restrictions, As Tolerated Follow Up/Referral: Follows with PCP in 1-2 weeks Follow up with surgery as scheduled Medications: [id number] ibuprofen for pain Resume home medications Discharge Statement: "Patient was advised to return to the ER or call 911 if any headaches, dizziness, shortness of breath, chest pain, abdominal pain, bleeding, fevers, or worsening of medical condition. Patient was counseled about treatment plan, medications, possible side effects, patientverbalized understanding. All questions were answered to the best of my ability. This discharge took greater then 30 minutes in planning, reviewing documentation, counseling the patient, and discussing with other team members." ASSESSMENT ASSESSMENT Assessment Date of Service: May 17, 2024 Billing Provider: FLAQUITO SIDHU MD Common Visit Codes: 81807-FLA/OBS DISCH DAY >30min RENEE SMITH RESIDENT May 17, 2024 16:14 FLAQUITO SIDHU MD May 20, 2024 20:59
[2024-05-17] MEDS ORDERED: KETOROLAC TROMETH 30 MG/ML 1ML VIAL IV SCH (22:00)
== END 2024-05-17 19:20 | disposition home or self-care (01) | DRG 398 ==
LOC: ER 10:26 → OVERFLOW 15:40 → WEST WING 18:10
PROVIDERS: ADMIT Internal Medicine; ATTEND Surgery
PROC: 0DTJ4ZZ Resection of Appendix, Percutaneous Endoscopic Approach (ICD-10-PCS; principal; 2024-05-16 15:30)
DX: K35.33 Acute appendicitis with perforation, localized peritonitis, and gangrene, with abscess (principal); E87.1 Hypo-osmolality and hyponatremia; R65.10 Systemic inflammatory response syndrome (SIRS) of non-infectious origin without acute organ dysfunction; N39.0 Urinary tract infection, site not specified; E87.20 Acidosis, unspecified; E11.9 Type 2 diabetes mellitus without complications; Z79.4 Long term (current) use of insulin; Z79.899 Other long term (current) drug therapy
CPT/HCPCS: 36415; 74176; 80053; 80307; 81001; 83036; 83605; 83690; 84702; 85025; 87040; G0378; J1815; J1885; J2250; J2405; J2543; J3490